=== PATIENT | male | born 1970 | race Caucasian/White ===

== ENCOUNTER 2023-09-06 07:26 | Day surgery (SDC) | payer MEDICAID ==
[2023-09-06] MEDS ORDERED: fentaNYL 100 MCG/2 ML SDV IV ONE (07:27)
[2023-09-06] MEDS ORDERED: Propofol 200 MG/20 ML SDV IV ONE (07:27)
[2023-09-06] MEDS ORDERED: Midazolam 1 MG/ML 2 ML SDV IV ONE (07:27)
[2023-09-06] MEDS ORDERED: Sodium Chloride 0.9% 10 ML Syringe FLUSH PRN (07:30)
[2023-09-06] MEDS ORDERED: Lactated Ringers 1,000 ML IV SCH (07:30)
[2023-09-06 08:37] VITALS: BP 136/90; PULSE 70
[2023-09-06] MEDS ORDERED: Simethicone Drops 40 MG/0.6 ML 30 ML Bottle PO ONE (09:20)
== END 2023-09-06 10:34 | disposition home or self-care (01) ==
LOC: FB.SDS 07:26
PROVIDERS: ATTEND Surgery
DX: Z12.11 Encounter for screening for malignant neoplasm of colon (principal); E11.59 Type 2 diabetes mellitus with other circulatory complications; I10 Essential (primary) hypertension; E11.69 Type 2 diabetes mellitus with other specified complication; E78.5 Hyperlipidemia, unspecified; H61.23 Impacted cerumen, bilateral; Z83.719 Family history of colon polyps, unspecified; Z79.82 Long term (current) use of aspirin; Z79.899 Other long term (current) drug therapy
CPT/HCPCS: 00812; 45378; A9270; J2250; J2704; J3010; J7120

== ENCOUNTER 2024-01-09 09:17 | Emergency (ER) | payer MEDICAID ==
[2024-01-09] MEDS ORDERED: Lidocaine 2% 20 ML MDV INFILT ONE (09:18)
[2024-01-09 11:55] VITALS: BP 133/77; PULSE 82
== END 2024-01-09 11:44 | disposition home or self-care (01) ==
LOC: FB.ED 09:17
DX: S61.210A Laceration without foreign body of right index finger without damage to nail, initial encounter (principal); S61.211A Laceration without foreign body of left index finger without damage to nail, initial encounter; E78.00 Pure hypercholesterolemia, unspecified; I10 Essential (primary) hypertension; E11.9 Type 2 diabetes mellitus without complications; Z79.82 Long term (current) use of aspirin; Z79.4 Long term (current) use of insulin; W25.XXXA Contact with sharp glass, initial encounter
CPT/HCPCS: 12002; 99282; 99283